=== PATIENT | female | born 1995 | race American Indian/Alaskan Native ===

== ENCOUNTER 2019-01-09 20:14 | Inpatient (IN) | payer MEDICAID ==
[2019-01-09] MEDS ORDERED: LACTATED RINGERS 1,000 ML ONE (21:08)
[2019-01-09] MEDS ORDERED: BRETHINE SUB-Q PRN (21:40)
[2019-01-09] MEDS ORDERED: MINERAL OIL PO PRN (21:40)
[2019-01-09] MEDS ORDERED: SUBLIMAZE IV PRN (21:40)
[2019-01-09] MEDS ORDERED: XYLOCAINE 2% INFILTRATI ONE (21:40)
[2019-01-09] MEDS ORDERED: PITOCin/NS 20 UNIT/1000ML DRIP 20 UNITS/1,000 ML BAG IV SCH (22:00)
[2019-01-09] MEDS ORDERED: LACTATED RINGERS 1,000 ML IV SCH ×2 (22:00)
[2019-01-09] MEDS ORDERED: PITOCin/NS 30 UNIT/500ML 30 UNITS/500 ML BAG IV SCH (22:00)
[2019-01-09 22:15] LABS: Basophils % (Auto) 0.4 % (0.0-1.8); Eosinophils % (Auto) 0.4 % (0.0-4.3); Hematocrit 34.6 % (30.3-42.9); Lymphocytes # (Auto) 1.6 K/mm3 (1.2-5.4); Lymphocytes % (Auto) 18.2 % (13.4-35.0); Mean Corpuscular HGB Conc 35 % (30-34); Mean Corpuscular Volume 99 fl (79-97); Monocytes # (Auto) 0.7 K/mm3 (0.0-0.8); Monocytes % (Auto) 8.4 % (0.0-7.3); Platelet Count 214 K/mm3 (140-440); Red Blood Count 3.48 M/mm3 (3.65-5.03); Red Cell Distribution Width 13.2 % (13.2-15.2)
--- NOTE | 2019-01-09 23:09 | History and Physical Report ---
History of Present Illness Date of examination: 01/09/19 Date of admission: 01/09/19 20:14 Chief complaint: Here at 41 weeks, 1 day gestation for induction of labor. History of present illness: 23 year old presents to L&D for induction of labor at 41 weeks, 1 day gestation. Patient received care at [facility] and records are available. LMP 03/27/18. EDC 01/01/19 (confirmed by 9.4 week US). EGA 41 weeks, 1 day. significant for the following: anemia (supplemented with iron), Vitamin D deficiency (supplemented with Vitamin D), ureaplasma on genital culture (treated). labs are as follows: O+, antibody screen negative, pap negative, rubella immune, RPR nonreactive, hepatitis B surface antigen negative, HIV ne gative, varicella nonimmune, HSV 2 negative, hemoglobin electrophoresis AA, gonorrhea negative, chlamydia negative, trichomonas negative, GBS negative, 1 hour sugar test 72. Past History Past Medical History: no pertinent history Past Surgical History: other (EAB) [facility] History: denies: abnormal PAP smear, chlamydia, fibroids, gonorrhea, hepatitis B, herpes, HIV, syphilis, trichomonas Family/Genetic History: diabetes, cancer Social history: single, full code. denies: smoking, alcohol abuse, prescription drug abuse, IV drug use - Obstetrical History Expected Date of Delivery: 01/01/19 Actual Gestation: 41 Week(s) 1 Day(s) : 2 Para: 0 Hx # Term Pregnancies: 1 Number of Pregnancies: 0 Spontaneous Abortions: 0 Induced : 1 Number of Living Children: 0 Medications and Allergies Allergies Allergy/AdvReac Type Severity Reaction Status Date / Time No Known Allergies Allergy Verified 01/09/19 21:11 Home Medications Medication Instructions Recorded Confirmed Last Taken Type Ferrous Sulfate [Feosol 325 MG tab] 1 tab PO BID 01/03/19 01/03/19 01/02/19 18:00 History 1 Pnv No.95/Ferrous Fum/Folic AC 1 tab PO DAILY 01/03/19 01/03/19 01/02/19 21:00 History [ Vitamins Tablet] Active Meds: Active Medications Ephedrine Sulfate (Ephedrine Sulfate) 10 mg IV Q2M PRN PRN Reason: Hypotension Fentanyl (Sublimaze) 100 mcg IV Q2H PRN PRN Reason: Labor Pain Oxytocin/Sodium Chloride (Pitocin/Ns 20 Unit/1000ml Drip) 20 units in 1,000 mls @ 125 mls/hr IV DIRECT MP Oxytocin/Sodium Chloride (Pitocin/Ns 30 Unit/500ml) 30 units in 500 mls @ 1 mls/hr IV TITR MP; Protocol Last Admin: 01/09/19 22:37 Dose: 2 milliunits/min, 2 mls/hr Documented by: Lactated Ringer's (Lactated Ringers) 1,000 mls @ 125 mls/hr IV DIRECT MP Mineral Oil (Mineral Oil) 30 ml PO QHS PRN PRN Reason: Constipation Terbutaline Sulfate (Brethine) 0.25 mg SUB-Q ONCE PRN PRN Reason: Hyperstimulation/Hypertonicity Review of Systems All systems: negative (mild irregular contractions) - Vital Signs Vital signs: Vital Signs Pulse BP 83 117/76 01/09/19 22:26 01/09/19 22:26 Temp Pulse Resp BP Pulse Ox 83 117/76 01/09/19 22:26 01/09/19 22:26 - Physical Exam Abdomen: Positive: normal appearance, soft. Negative: distention, tenderness, guarding, rigidity Genitourinary (Female): Positive: normal external genitalia, normal perenium. Negative: perineal/vulvar lesions Vagina: Positive: normal moisture Uterus: Positive: enlarged. Negative: tender Anus/Rectum: Negative: normal perianal skin Extremities: Positive: normal. Negative: tenderness, edema - Obstetrical FHR: category 1 Uterine Contraction Monitor Mode: External Cervical Dilatation: 2 Cervical Effacement Percentage: 60 station: -2 Uterine Contraction Pattern: Irregular Uterine Contraction Intensity: Mild Results Result Diagrams: 01/09/19 22:05 Abnormal lab results 01/09/19 Range/Units 22:05 RBC 3.48 L (3.65-5.03) M/mm3 MCV 99 H (79-97) fl MCH 34 H (28-32) pg MCHC 35 H (30-34) % [place] % (Auto) 8.4 H (0.0-7.3) % Seg Neutrophils % 72.6 H (40.0-70.0) % All other labs normal. Assessment and Plan A: at 41 weeks, 4 days gestation. GBS negative. P: Admit. Low dose Pitocin for cervical ripening, followed by IOL. Discussed with patient risks and benefits or Pitocin for cervical ripening and induction of labor. Patient consented to cervical ripening and induction of labor.
--- NOTE | 2019-01-10 07:52 | Progress Note ---
Assessment and Plan A: at 41 2/7 weeks gestation. GBS negative. Induction of labor with Pitocin. P: Continuous EFM. Pitocin per protocol. Subjective - Subjective Date of service: 01/10/19 Principal diagnosis: at 41 2/7 weeks; IOL Interval history: Patient is having labor induced due to 41 2/7 weeks gestation. Patient reports: movement normal, contractions, no new complaints, no loss of fluid, no vaginal bleeding Objective - Vital Signs Vital Signs: Vital Signs - 12hr 01/09/19 01/10/19 22:26 07:27 Temperature 97.2 F L Pulse Rate 83 73 Respiratory 15 Rate Blood Pressure 117/76 112/64 Blood Pressure 112/64 [Right] - Exam Abdomen: Present: normal appearance, soft. Absent: distention, tenderness, guarding, rigidity Uterus: Present: normal, fundal height above umbilicus. Absent: tenderness FHR: category 1 Uterine Contraction Monitor Mode: External Uterine Contraction Pattern: Irregular Uterine Contraction Intensity: Mild Extremities: normal - Labs Labs: Abnormal Labs 01/09/19 22:05 RBC 3.48 L MCV 99 H MCH 34 H MCHC 35 H [place] % (Auto) 8.4 H Seg Neutrophils % 72.6 H Laboratory Results - last 24 hr 01/09/19 01/09/19 22:05 22:05 WBC 8.8 RBC 3.48 L Hgb 12.0 Hct 34.6 MCV 99 H MCH 34 H MCHC 35 H RDW 13.2 Plt Count 214 Lymph % (Auto) 18.2 [place] % (Auto) 8.4 H Eos % (Auto) 0.4 Baso % (Auto) 0.4 Lymph # 1.6 [place] # 0.7 Eos # 0.0 Baso # 0.0 Seg Neutrophils % 72.6 H Seg Neutrophils # 6.4 Blood Type O POSITIVE Antibody Screen Negative
[2019-01-10] MEDS ORDERED: PITOCin/NS 30 UNIT/500ML 30 UNITS/500 ML BAG IV SCH (08:00)
--- NOTE | 2019-01-10 15:51 | Event Note ---
Date: 01/10/19 SVE /-/TAYLER. Pt. requests epidural. IV fluid bolus started.
[2019-01-10] MEDS ORDERED: MARCAINE 0.25% INFILTRATI ONE ×2 (16:54→18:01)
[2019-01-10] MEDS ORDERED: NARCAN 2 MG/2 ML IV PRN (17:24)
[2019-01-10] MEDS ORDERED: ZOFRAN IV PRN (17:24)
--- NOTE | 2019-01-10 17:24 | Anesthesia Consultation ---
Anesthesia Consult and Med Hx - Airway Anesthetic Teeth Evaluation: Good ROM Head & Neck: Adequate Mental/Hyoid Distance: Adequate Mallampati Class: Class II Intubation Access Assessment: Good - Pulmonary Exam CTA: Yes - Cardiac Exam Cardiac Exam: RRR - Pre-Operative Health Status ASA Pre-Surgery Classification: ASA2 Proposed Anesthetic Plan: Epidural - Pulmonary Hx Smoking: No Hx Asthma: No Hx Respiratory Symptoms: No SOB: No COPD: No Home Oxygen Therapy: No Hx Pneumonia: No Hx Sleep Apnea: No - Cardiovascular System Hx Hypertension: No Hx Coronary Artery Disease: No Hx Heart Attack/AMI: No Hx Angina: No Hx Percutaneous Transluminal Coronary Angioplasty (PTCA): No Hx Cardia Arrhythmia: No Hx Pacemaker: No Hx Internal Defibrillator: No Hx Valvular Heart Disease: No Hx Heart Murmur: No Hx Peripheral Vascular Disease: No - Central Nervous System Hx Neuromuscular Disorder: No Hx Seizures: No Hx Psychiatric Problems: No - Endocrine Hx Renal Disease: No Hx End Stage Renal Disease: No Hx Liver Disease: No Hx Insulin Dependent Diabetes: No Hx Non-Insulin Dependent Diabetes: No Hx Thyroid Disease: No Hx Hypothyroidism: No Hx Hyperthyroidism: No - Hematic Hx Anemia: Yes Hx Sickle Cell Disease: No - Other Systems Hx Alcohol Use: No Hx Substance Use: No Hx Cancer: No
[2019-01-10] MEDS ORDERED: LIDOCAINE 1.5%/EPI 1:200,000 INFILTRATI ONE (18:01)
[2019-01-10] MEDS ORDERED: LANSINOH TP PRN (19:45)
[2019-01-10] MEDS ORDERED: MILK OF MAGNESIA PO PRN (19:45)
[2019-01-10] MEDS ORDERED: TUCKS PAD TP PRN (19:45)
[2019-01-10] MEDS ORDERED: BENADRYL PO PRN (19:45)
--- NOTE | 2019-01-10 19:59 | Procedure Note ---
OB Delivery Note - Delivery Date of Delivery: 01/10/19 Surgeon: KULWINDER DYE Estimated blood loss: 200cc - Vaginal Delivery presentation: vertex Delivery position: OP (Direct OP, rotated to OA with ) Intrapartum events: shoulder dystocia (left anterior shoulder dystocia, resolved with delivery of posterior arm and Nanci maneuver) Delivery induction: oxytocin Delivery monitor: external FHT, external uterine, internal FHT Route of delivery: Delivery placenta: spontaneous Delivery cord: nuchal cord, 3 umbilical vessels (loose nuchal cord and body cord) Episiotomy: none Delivery laceration: none Anesthesia: epidural Delivery comments: Spontaneous vaginal delivery at 18:45 of liveborn male weighing 8 lb. 3 oz. over intact perineum with apgars of 8/9. Thin meconium stained amniotic fluid. head rotated from OP to OA with . Left anterior shoulder dystocia resolved with Nanci maneuver and delivery of posterior arm. 3 vessel cord double clamped and cut and baby taken to radiant warmer for suctioning; baby cried spontaneously as he was being carried to warmer. Spontaneous delivery of intact placenta and membranes by trevino mechanism at 18:50. EBL 200 cc. Pitocin to IV fluids after delivery of placenta. Fundus firm and midline. No lacerations noted. Vaginal sweep negative. Sponge count correct. Mother and baby stable in birthing room.
[2019-01-10] MEDS ORDERED: SODIUM CHLORIDE FLUSH SYRINGE 10 ML IV SCH (20:00)
[2019-01-10] MEDS: IBUPROFEN PO SCH (20:12)
[2019-01-10 22:15] LABS: Alanine Aminotransferase 12 units/L (7-56); Albumin 3.1 g/dL (3.9-5); BUN/Creatinine Ratio 8; Blood Urea Nitrogen 5 mg/dL (7-17); Calcium 8.6 mg/dL (8.4-10.2); Hemolysis Index 4
[2019-01-11 04:09] LABS: Bacteria,Urine 1+ /HPF (Negative); Bilirubin,Urine NEG (Negative); Blood,Urine LG (Negative); Color,Urine Red (Yellow); Mucus,Urine FEW /HPF; Urobilinogen,Urine < 2.0 mg/dL (<2.0)
[2019-01-11 04:10] LABS: RBC,Urine > 182.0 /HPF (0.0-6.0)
[2019-01-11 08:16] LABS: Hematocrit 34.4 % (30.3-42.9); Hemoglobin 11.9 gm/dl (10.1-14.3)
[2019-01-11] MEDS: NORCO 5/325 PO PRN ×3 (13:11→23:27)
[2019-01-11] MEDS: IBUPROFEN PO SCH ×2 (13:12→23:27)
--- NOTE | 2019-01-11 15:17 | Progress Note ---
Assessment and Plan A: day 1 S/P spontaneous vaginal delivery. P: Anticipate discharge tomorrow. Subjective - Subjective Date of service: 01/11/19 Principal diagnosis: day 1 S/P spontaneous vaginal delivery Interval history: day 1 S/P spontaneous vaginal delivery. Patient is doing well. She reports a small amount of lochia. Patient is voiding without difficulty and ambulating well. She is tolerating a regular diet without nausea or vomiting. Patient denies headache, chest pain, cough, shortness of breath, leg pain, abdominal pain, heavy bleeding, or any other problems. Patient reports: appetite normal, voiding normally, pain well controlled, flatus, ambulating normally, no dizzy ambulation, no nauseated [place]: doing well Objective - Vital Signs Latest vital signs: Vital Signs Temp Pulse Resp BP BP Pulse Ox 01/11/19 12:18 98.3 F 92 H 20 128/78 99 01/11/19 08:14 98.2 F 79 20 117/82 99 01/11/19 05:50 98.2 F 100 H 18 114/61 99 01/11/19 02:20 99.2 F 97 H 18 126/70 01/10/19 22:15 99.4 F 89 18 130/68 99 01/10/19 21:33 82 138/81 01/10/19 21:31 83 139/86 01/10/19 21:19 86 151/95 01/10/19 21:03 93 H 129/76 01/10/19 20:33 85 139/73 01/10/19 20:18 89 135/75 01/10/19 20:03 79 139/79 01/10/19 20:00 98.4 F 89 18 135/79 01/10/19 19:48 83 144/80 01/10/19 19:44 83 147/78 01/10/19 19:33 84 141/96 01/10/19 19:18 96 H 143/93 01/10/19 18:48 98 H 159/74 01/10/19 18:45 110 H 88 01/10/19 18:41 94 H 98 01/10/19 18:36 92 H 99 01/10/19 18:33 93 H 162/98 01/10/19 18:31 83 99 01/10/19 18:25 98 H 100 01/10/19 18:20 99 H 100 01/10/19 18:19 103 H 138/92 01/10/19 18:15 104 H 100 01/10/19 18:10 105 H 100 01/10/19 18:07 93 H 148/85 01/10/19 18:05 102 H 160/92 99 01/10/19 18:03 96 H 164/99 01/10/19 18:00 82 99 01/10/19 17:55 92 H 99 01/10/19 17:50 89 99 01/10/19 17:49 90 146/89 01/10/19 17:45 90 98 01/10/19 17:40 83 95 01/10/19 17:37 92 H 94 01/10/19 17:35 90 99 01/10/19 17:33 100 H 145/94 01/10/19 17:30 83 96 01/10/19 17:25 90 100 01/10/19 17:21 85 141/91 01/10/19 17:20 86 100 01/10/19 17:19 78 141/100 01/10/19 17:17 78 152/87 01/10/19 17:15 91 H 100 01/10/19 17:11 83 79 L 01/10/19 17:10 87 137/81 99 01/10/19 17:07 86 127/76 01/10/19 17:05 85 99 01/10/19 17:00 84 97 01/10/19 16:59 85 126/79 01/10/19 16:55 95 H 97 01/10/19 16:50 79 136/84 99 01/10/19 16:45 80 100 Intake and Output 01/10/19 01/11/19 01/11/19 23:59 07:59 15:59 Intake Total 600 480 Output Total 1650 Balance -1050 480 Intake: Oral 480 Intake, Free Water 600 Output: Urine 1650 Void 1650 Other: Total, Intake Amount 240 Total, Output Amount 850 # Voids Void 1 1 Estimated Blood Loss 200 - Exam Abdomen: Present: normal appearance, soft. Absent: distention, tenderness, guarding, rigidity Uterus: Present: normal, firm, fundal height below umbilicus. Absent: bogginess, tenderness Extremities: Present: normal. Absent: tenderness, edema - Labs Labs: Abnormal lab results 01/10/19 01/11/19 Range/Units 21:17 01:00 Sodium 133 L (137-145) mmol/L Carbon Dioxide 18 L (22-30) mmol/L BUN 5 L (7-17) mg/dL Creatinine 0.6 L (0.7-1.2) mg/dL Glucose 133 H (65-100) mg/dL Alkaline Phosphatase 202 H (35-129) units/L Total Protein 5.9 L (6.3-8.2) g/dL Albumin 3.1 L (3.9-5) g/dL Urine WBC (Auto) 19.0 H (0.0-6.0) /HPF
[2019-01-11] MEDS: COLACE PO SCH (23:28)
[2019-01-12] MEDS: IBUPROFEN PO SCH ×3 (06:28→18:21)
[2019-01-12] MEDS: NORCO 5/325 PO PRN ×2 (06:29→14:43)
--- NOTE | 2019-01-12 10:14 | Progress Note ---
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 Patient reports: appetite normal, voiding normally, pain well controlled, ambulating normally, no dizzy ambulation : doing well Objective - Vital Signs Latest vital signs: Vital Signs Temp Pulse Resp BP BP Pulse Ox 01/12/19 08:20 97.9 F 72 20 124/86 01/12/19 01:25 98.2 F 76 20 118/81 100 01/11/19 16:37 98.2 F 96 H 20 125/72 100 01/11/19 12:18 98.3 F 92 H 20 128/78 99 Intake and Output 01/11/19 01/12/19 01/12/19 23:59 07:59 15:59 Intake Total 480 240 320 Balance 480 240 320 Intake: Oral 480 240 320 Other: Total, Intake Amount 480 240 320 # Voids Void 1 1 1 - Exam Cardiovascular: Present: Regular rate Abdomen: Present: normal appearance, soft Vulva: both: normal Uterus: Present: normal, firm, fundal height below umbilicus Extremities: Present: normal Comments: scant lochia <REBECCA CEJA - Last Filed: 01/13/19 09:23> Objective - Vital Signs Latest vital signs: Vital Signs Temp Pulse Resp BP 01/12/19 16:00 98.7 F 83 20 127/69 Intake and Output 01/12/19 01/13/19 01/13/19 23:59 07:59 15:59 Intake Total 240 Balance 240 Intake: Oral 240 Other: Total, Intake Amount 240 # Voids Void 1 - Labs Labs: Laboratory Results - last 72 hr 01/09/19 01/10/19 01/10/19 22:05 21:17 21:17 Hgb Hct Plt Count 216 Sodium 133 L Potassium 3.6 Chloride 100.5 Carbon Dioxide 18 L Anion Gap 18 BUN 5 L Creatinine 0.6 L Estimated GFR > 60 BUN/Creatinine Ratio 8 Glucose 133 H Calcium 8.6 Total Bilirubin 0.50 AST 22 ALT 12 Alkaline Phosphatase 202 H Total Protein 5.9 L Albumin 3.1 L Albumin/Globulin Ratio 1.1 Urine Color Urine Turbidity Urine pH Ur Specific [place] Urine Protein Urine Glucose (UA) Urine Ketones Urine Blood Urine Nitrite Urine Bilirubin Urine Urobilinogen Ur Leukocyte Esterase Urine WBC (Auto) Urine RBC (Auto) U Epithel Cells (Auto) Urine Bacteria (Auto) Urine Mucus RPR Nonreactive Hepatitis C Antibody 01/10/19 01/11/19 01/11/19 21:17 01:00 07:29 Hgb 11.9 Hct 34.4 Plt Count Sodium Potassium Chloride Carbon Dioxide Anion Gap BUN Creatinine Estimated GFR BUN/Creatinine Ratio Glucose Calcium Total Bilirubin AST ALT Alkaline Phosphatase Total Protein Albumin Albumin/Globulin Ratio Urine Color Red Urine Turbidity Clear Urine pH 7.0 Ur Specific [place] 1.005 Urine Protein 30 mg/dl Urine Glucose (UA) Neg Urine Ketones Neg Urine Blood Lg Urine Nitrite Neg Urine Bilirubin Neg Urine Urobilinogen < 2.0 Ur Leukocyte Esterase Lg Urine WBC (Auto) 19.0 H Urine RBC (Auto) > 182.0 U Epithel Cells (Auto) < 1.0 Urine Bacteria (Auto) 1+ Urine Mucus Few RPR Hepatitis C Antibody Non-reactive
--- NOTE | 2019-01-12 10:17 | Discharge Summary ---
<RAMON CORREIA - Last Filed: 01/12/19 10:17> Providers - Providers Date of Admission: 01/09/19 20:14 Date of discharge: 01/13/19 Attending physician: CATE QUESADA MD Primary care physician: CONTINUOUS PILLOWCASE CUTTER Hospitalization Reason for admission: induction of labor, IUP at term Delivery: Episiotomy: none Laceration: none Other procedures: none complications: none Discharge diagnosis: IUP at term delivered baby: male Hospital course: Uncomplicated Condition at discharge: Stable Disposition: DC-01 TO HOME OR SELFCARE - Discharge Diagnoses (1) Status post normal vaginal delivery Status: Acute Plan - Provider Discharge Summary Activity: routine, no sex for 6 weeks, no heavy lifting 4 weeks, no strenuous exercise Diet: routine Instructions: routine Additional instructions: [] Smoking cessation referral if applicable(refer to patient education folder for contact #) [] Refer to [facility] Booklet Call your doctor immediately for: * Fever > 100.5 * Heavy vaginal bleeding ( >1 pad per hour) * Severe persistent headache * Shortness of breath * Reddened, hot, painful area to leg or breast * Drainage or odor from incision. * Keep incision clean and dry at all times and follow doctor's instructions regarding bathing/showering - Follow up plan Follow up: PRIMARY CARE, [Primary Care Provider] - 6 Weeks (Follow up at [facility] in 6 weeks for exam) Forms: [facility] Discharge Summary <MARCIALREBECCA Trina - Last Filed: 01/23/19 00:31> Providers - Providers Date of Admission: 01/09/19 20:14 Attending physician: CATE QUESADA MD Primary care physician: CONTINUOUS PILLOWCASE CUTTER Hospitalization Hospital course: Laboratory Tests 01/09/19 01/09/19 01/09/19 22:05 22:05 22:05 WBC 8.8 RBC 3.48 L Hgb 12.0 Hct 34.6 MCV 99 H MCH 34 H MCHC 35 H RDW 13.2 Plt Count 214 Lymph % (Auto) 18.2 [place] % (Auto) 8.4 H Eos % (Auto) 0.4 Baso % (Auto) 0.4 Lymph # 1.6 [place] # 0.7 Eos # 0.0 Baso # 0.0 Seg Neutrophils % 72.6 H Seg Neutrophils # 6.4 Sodium Potassium Chloride Carbon Dioxide Anion Gap BUN Creatinine Estimated GFR BUN/Creatinine Ratio Glucose Calcium Total Bilirubin AST ALT Alkaline Phosphatase Total Protein Albumin Albumin/Globulin Ratio Urine Color Urine Turbidity Urine pH Ur Specific [place] Urine Protein Urine Glucose (UA) Urine Ketones Urine Blood Urine Nitrite Urine Bilirubin Urine Urobilinogen Ur Leukocyte Esterase Urine WBC (Auto) Urine RBC (Auto) U Epithel Cells (Auto) Urine Bacteria (Auto) Urine Mucus RPR Nonreactive Hepatitis C Antibody Blood Type O POSITIVE Antibody Screen Negative 01/10/19 01/10/19 01/10/19 21:17 21:17 21:17 WBC RBC Hgb Hct MCV MCH MCHC RDW Plt Count 216 Lymph % (Auto) [place] % (Auto) Eos % (Auto) Baso % (Auto) Lymph # [place] # Eos # Baso # Seg Neutrophils % Seg Neutrophils # Sodium 133 L Potassium 3.6 Chloride 100.5 Carbon Dioxide 18 L Anion Gap 18 BUN 5 L Creatinine 0.6 L Estimated GFR > 60 BUN/Creatinine Ratio 8 Glucose 133 H Calcium 8.6 Total Bilirubin 0.50 AST 22 ALT 12 Alkaline Phosphatase 202 H Total Protein 5.9 L Albumin 3.1 L Albumin/Globulin Ratio 1.1 Urine Color Urine Turbidity Urine pH Ur Specific [place] Urine Protein Urine Glucose (UA) Urine Ketones Urine Blood Urine Nitrite Urine Bilirubin Urine Urobilinogen Ur Leukocyte Esterase Urine WBC (Auto) Urine RBC (Auto) U Epithel Cells (Auto) Urine Bacteria (Auto) Urine Mucus RPR Hepatitis C Antibody Non-reactive Blood Type Antibody Screen 01/11/19 01/11/19 01:00 07:29 WBC RBC Hgb 11.9 Hct 34.4 MCV MCH MCHC RDW Plt Count Lymph % (Auto) [place] % (Auto) Eos % (Auto) Baso % (Auto) Lymph # [place] # Eos # Baso # Seg Neutrophils % Seg Neutrophils # Sodium Potassium Chloride Carbon Dioxide Anion Gap BUN Creatinine Estimated GFR BUN/Creatinine Ratio Glucose Calcium Total Bilirubin AST ALT Alkaline Phosphatase Total Protein Albumin Albumin/Globulin Ratio Urine Color Red Urine Turbidity Clear Urine pH 7.0 Ur Specific [place] 1.005 Urine Protein 30 mg/dl Urine Glucose (UA) Neg Urine Ketones Neg Urine Blood Lg Urine Nitrite Neg Urine Bilirubin Neg Urine Urobilinogen < 2.0 Ur Leukocyte Esterase Lg Urine WBC (Auto) 19.0 H Urine RBC (Auto) > 182.0 U Epithel Cells (Auto) < 1.0 Urine Bacteria (Auto) 1+ Urine Mucus Few RPR Hepatitis C Antibody Blood Type Antibody Screen Plan - Provider Discharge Summary Additional instructions: [] Smoking cessation referral if applicable(refer to patient education folder for contact #) [] Refer to [facility] Booklet Call your doctor immediately for: * Fever > 100.5 * Heavy vaginal bleeding ( >1 pad per hour) * Severe persistent headache * Shortness of breath * Reddened, hot, painful area to leg or breast * Drainage or odor from incision. * Keep incision clean and dry at all times and follow doctor's instructions regarding bathing/showering
[2019-01-12] MEDS: COLACE PO SCH (10:18)
[2019-01-12 17:42] VITALS: BP 127/69
== END 2019-01-12 18:10 | disposition home or self-care (01) | DRG 775 ==
LOC: LD 20:14 → OB 01-10 22:00
PROVIDERS: ADMIT Obstetrics & Gynecology; ATTEND Obstetrics & Gynecology
PROC: 3E033VJ Introduction of Other Hormone into Peripheral Vein, Percutaneous Approach (ICD-10-PCS; 2019-01-09)
PROC: 10E0XZZ Delivery of Products of Conception, External Approach (ICD-10-PCS; principal; 2019-01-10)
PROC: 3E0R3BZ Introduction of Anesthetic Agent into Spinal Canal, Percutaneous Approach (ICD-10-PCS; 2019-01-10)
PROC: 00HU33Z Insertion of Infusion Device into Spinal Canal, Percutaneous Approach (ICD-10-PCS; 2019-01-10)
DX: O66.0 Obstructed labor due to shoulder dystocia (principal); O69.81X0 Labor and delivery complicated by cord around neck, without compression, not applicable or unspecified; O77.0 Labor and delivery complicated by meconium in amniotic fluid; Z3A.41 41 weeks gestation of pregnancy; Z37.0 Single live birth; Z82.49 Family history of ischemic heart disease and other diseases of the circulatory system; Z80.9 Family history of malignant neoplasm, unspecified
CPT/HCPCS: 36415; 80053; 81001; 85014; 85018; 85025; 85049; 86592; 86803; 86850; 86900; 86901; G0378; A6250; J2590; J3010; J7120

== ENCOUNTER 2021-10-23 10:03 | Emergency (ER) | payer MEDICAID ==
[2021-10-23 11:42] VITALS: BP 129/76
--- NOTE | 2021-10-23 13:14 | Emergency Department Report ---
ED Female HPI - General Chief complaint: Skin/Abscess/Foreign Body Stated complaint: FBO Time Seen by Provider: 10/23/21 11:52 Source: patient Mode of arrival: Ambulatory Limitations: No Limitations - History of Present Illness Initial comments: 26-year-old -[place]og[place] female presents to the emergency room reporting she has a retained tampon in her vaginal area since October 21, 2021. Patient states that her last menstrual periods started on October 18, 2021. She denies any pelvic pain or vaginal discharge. She just states she feels pressure in her vaginal area. She denies any fever no nausea no vomiting. She denies any dysuria no urinary urgency or frequency. Complaint: other Onset/Timin -: days(s) Location: other (Vaginal vault) Severity scale (0 -10): 1 Consistency: constant Improves with: none Are you Now?: No Last Menstrual Period: 10/18/21 EDC: 07/25/22 Associated Symptoms: denies other symptoms - Related Data Home Medications Medication Instructions Recorded Confirmed Last Taken Ferrous Sulfate [Feosol 325 MG tab] 1 tab PO BID 01/03/19 01/10/19 01/02/19 18:00 1 Pnv No.95/Ferrous Fum/Folic AC 1 tab PO DAILY 01/03/19 01/10/19 1 Day Ago [ Vitamins Tablet] ~01/09/19 Previous Rx's Medication Instructions Recorded Last Taken Type metroNIDAZOLE [metroNIDAZOLE 0.75% 1 supp VG QHS #5 gel..gram. 10/23/21 Unknown Rx gel TOPICAL] Allergies Allergy/AdvReac Type Severity Reaction Status Date / Time No Known Allergies Allergy Verified 01/09/19 21:11 ED Review of Systems ROS: Stated complaint: FBO Other details as noted in HPI Comment: All other systems reviewed and negative ED Past Medical Hx - Past Medical History Hx Hypertension: No Hx Heart Attack/AMI: No Hx Diabetes: No Hx Deep Vein Thrombosis: No Hx Liver Disease: No Hx Renal Disease: No Hx Sickle Cell Disease: No Hx Seizures: No Hx Asthma: No Hx COPD: No Hx HIV: No - Surgical History Hx Pacemaker: No Hx Internal Defibrillator: No - Social History Smoking Status: Never Smoker - Medications Home Medications: Home Medications Medication Instructions Recorded Confirmed Last Taken Type Ferrous Sulfate [Feosol 325 MG tab] 1 tab PO BID 01/03/19 01/10/1919 18:00 History 1 Pnv No.95/Ferrous Fum/Folic AC 1 tab PO DAILY 01/03/19 01/10/19 1 Day Ago History [ Vitamins Tablet] ~01/09/19 metroNIDAZOLE [metroNIDAZOLE 0.75% 1 supp VG QHS #5 gel..gram. 10/23/21 Unknown Rx gel TOPICAL] ED Physical Exam - General Limitations: No Limitations General appearance: alert, in no apparent distress - Head Head exam: Present: atraumatic, normocephalic - Eye Eye exam: Present: normal appearance - ENT ENT exam: Present: mucous membranes moist - Neck Neck exam: Present: normal inspection - Respiratory Respiratory exam: Present: normal lung sounds bilaterally. Absent: respiratory distress - Cardiovascular Cardiovascular Exam: Present: regular rate, normal rhythm. Absent: systolic murmur, diastolic murmur, rubs, gallop - GI/Abdominal GI/Abdominal exam: Present: soft, normal bowel sounds - External exam: Present: normal external exam Speculum exam: Present: foreign body Bi-manual exam: Present: normal bi-manual exam - Extremities Exam Extremities exam: Present: normal inspection - Back Exam Back exam: Present: normal inspection - Neurological Exam Neurological exam: Present: alert, oriented X3 - Psychiatric Psychiatric exam: Present: normal affect, normal mood - Skin Skin exam: Present: warm, dry, intact, normal color. Absent: rash ED Course Vital Signs 10/23/21 11:39 Temperature 98.0 F Pulse Rate 68 Respiratory 16 Rate Blood Pressure 129/76 O2 Sat by Pulse 92 Oximetry ED Medical Decision Making - Medical Decision Making 26-year-old -[place] female presents to the emergency room reporting she has a retained tampon in her vaginal area since October 21, 2021. Patient states that her last menstrual periods started on October 18, 2021. She denies any pelvic pain or vaginal discharge. She just states she feels pressure in her vaginal area. She denies any fever no nausea no vomiting. She denies any dysuria no urinary urgency or frequency. Female exam done by this provider with the help of Ms. Melissa Lerner physician associate. This provider was able to remove foreign body from vaginal wall without any complications. Discussed with patient I will place her on Flagyl/MetroGel. Discussed with patient not to have anything in her vaginal vault for 2 weeks complete antibiotic pain medicine can be Tylenol or ibuprofen if you have any. Very important to increase your water intake. Critical care attestation.: If time is entered above; I have spent that time in minutes in the direct care of this critically ill patient, excluding procedure time. ED Disposition Clinical Impression: Retained tampon Disposition: 01 HOME / SELF CARE / HOMELESS Is pt being admited?: No Does the pt Need Aspirin: No Condition: Stable Instructions: Vaginal Foreign Body, [id number] Additional Instructions: Complete antibiotic as prescribed. Tylenol ibuprofen as needed. If you start to have any pelvic pain fever sweating nausea vomiting to return back to the emergency room immediately. Prescriptions: metroNIDAZOLE [metroNIDAZOLE 0.75% gel TOPICAL] 1 supp VG QHS #5 gel..gram. Referrals: PRIMARY CARE, [Primary Care Provider] - 3-5 Days Time of Disposition: 13:14
== END 2021-10-23 13:42 | disposition home or self-care (01) ==
LOC: ED 10:03
DX: T19.2XXA Foreign body in vulva and vagina, initial encounter (principal); X58.XXXA Exposure to other specified factors, initial encounter; Y93.89 Activity, other specified; Y92.89 Other specified places as the place of occurrence of the external cause; Y99.8 Other external cause status
CPT/HCPCS: 99282; 99283

== ENCOUNTER 2022-06-02 03:04 | Emergency (ER) | payer MEDICAID ==
[2022-06-02 03:10] VITALS: BP 139/86
== END 2022-06-03 15:54 | disposition left against medical advice (07) ==
LOC: ED 03:04
DX: H92.21 Otorrhagia, right ear (principal); Z53.21 Procedure and treatment not carried out due to patient leaving prior to being seen by health care provider